=== PATIENT | female | born 1965 | race Caucasian/White ===

== ENCOUNTER → 2017-08-14 | Outpatient (CLI) | payer BC ==
--- NOTE | 2017-08-14 14:31 | Diagnostic Imaging Report ---
Indication: Cough Comparison: 01/03/2013 A single view chest radiograph was obtained. Findings: Cardiomediastinal appearance is within normal limits for age. Pulmonary vascularity is appropriate. The diaphragmatic contour is smooth and costophrenic angles are sharp. No pleural effusions are identified. The bones are unremarkable. Impression: No acute findings
== END | disposition home or self-care (01) ==
LOC: RAD 11:22
DX: R05 Cough (principal)
CPT/HCPCS: 71045